=== PATIENT | female | born 1995 | race Two or more races ===

== ENCOUNTER 2018-03-23 07:05 | Day surgery (SDC) | payer OTHER ==
[2018-03-23] MEDS ORDERED: FENTAnyl 50 MCG/ML VIAL ×2 (10:24→11:26)
[2018-03-23] MEDS ORDERED: ROCURONIUM 50 MG INJ (10:24)
[2018-03-23] MEDS ORDERED: PROPOFOL 20 ML (10:24)
[2018-03-23] MEDS ORDERED: CEFAZOLIN 1 GM INJ (10:24)
[2018-03-23] MEDS ORDERED: MIDAZOLAM 1 MG/ML 2 ML INJ (10:24)
[2018-03-23] MEDS ORDERED: MEPERIDINE 25 MG INJ IV (11:00)
[2018-03-23] MEDS ORDERED: FENTAnyl 50 MCG/ML VIAL IV ×2 (11:00)
[2018-03-23] MEDS ORDERED: DIPHENHYDRAMINE 50 MG INJ IV (11:00)
[2018-03-23] MEDS ORDERED: OXYCODONE/ACETAMINOPHEN (5/325) TAB PO (11:00)
[2018-03-23] MEDS ORDERED: HYDROmorphONE 1 MG/5 ML IV SYRINGE IV ×2 (11:00)
[2018-03-23] MEDS ORDERED: ONDANSETRON 4 MG INJ IV (11:00)
[2018-03-23] MEDS: BUPIVACAINE 0.25% (MPF) 30 ML INJ (11:26)
[2018-03-23] MEDS ORDERED: KETOROLAC 30 MG INJ (11:30)
[2018-03-23] MEDS ORDERED: DEXAMETHASONE 4 MG/ML 1 ML INJ (11:30)
[2018-03-23] MEDS ORDERED: METOCLOPRAMIDE 10 MG INJ (11:30)
[2018-03-23] MEDS ORDERED: ONDANSETRON 4 MG INJ (11:30)
[2018-03-23] MEDS ORDERED: EPHEDrine SULFATE 50 MG/5 ML SYG (11:36)
[2018-03-23] MEDS ORDERED: CEFAZOLIN 2 GM/50 ML (PMX) 50 ML IVPB (12:00)
[2018-03-23] MEDS ORDERED: HYDROCODONE/APAP (5/325) TAB PO (12:00)
[2018-03-23] MEDS ORDERED: SOD CHLORIDE 0.9% 1,000 ML IV (12:00)
== END 2018-03-23 14:17 | disposition home or self-care (01) ==
LOC: SDS 07:05
DX: D24.1 Benign neoplasm of right breast (principal)
CPT/HCPCS: 14000; 88307